=== PATIENT | female | born 1995 | race Caucasian/White ===

== ENCOUNTER 2016-12-23 10:00 | Emergency (ER) | payer MEDICAID ==
[~2016-12-23] VITALS: Ht 165.1 cm; Wt 66.3 kg
[2016-12-23 10:16] VITALS: TEMP 98.3
[2016-12-23] MEDS ORDERED: PRENATAL (12:27)
[2016-12-23 13:14] VITALS: BP 119/66; PULSE 85
== END 2016-12-23 13:15 | disposition home or self-care (01) ==
LOC: COL.ER 10:00
DX: O9A.212 Injury, poisoning and certain other consequences of external causes complicating pregnancy, second trimester (principal); S06.0X0A Concussion without loss of consciousness, initial encounter; Z3A.27 27 weeks gestation of pregnancy; W10.8XXA Fall (on) (from) other stairs and steps, initial encounter; Y92.008 Other place in unspecified non-institutional (private) residence as the place of occurrence of the external cause

== ENCOUNTER 2017-03-01 13:09 | Emergency (ER) | payer MEDICAID ==
[~2017-03-01] VITALS: Ht 165.1 cm; Wt 72.7 kg
[~2017-03-01 13:09] MED LIST: PRENATAL
[2017-03-01 13:11] VITALS: TEMP 98.3
[2017-03-01 14:55] LABS: PH 7 (5-8); SQUAMOUS EPITHELIAL 0-2 /hpf; URINE APPEARANCE Cloudy; URINE BACTERIA Rare /hpf; URINE BILIRUBIN Negative (NEGATIVE); URINE BLOOD Negative (NEGATIVE); URINE COLOR Yellow; URINE GLUCOSE 1+ (NEGATIVE); URINE KETONE Negative (NEGATIVE); URINE RBC 0-2 /hpf; URINE UROBILINOGEN Negative (NEGATIVE)
[2017-03-01 15:29] LABS: ADJUSTED CALCIUM 9.5 mg/dL (8.4-10.2); ALBUMIN 3.2 gm/dL (3.5-5.0); BILIRUBIN,TOTAL 0.5 mg/dL (0.0-1.0); CALCIUM 8.9 mg/dL (8.4-10.2); CREATININE, serum 0.63 mg/dL (0.52-1.25); POTASSIUM 3.5 mmol/L (3.4-5.0); TOTAL PROTEIN 6.4 gm/dL (6.4-8.2)
[2017-03-01 15:44] LABS: BASO % 0.3 % (0.0-2.0); EOS % 0.4 % (0-4.0); GRAN # 6.7 (1.4-6.5); GRAN % 73.3 % (42.2-75.2); LYMPH # 1.4 (1.2-3.4); LYMPH % 15.7 % (20.0-51.0); MEAN CELL VOLUME 80 fl (80.0-100.0); MEAN CORPUSCULAR HGB CONC 32 g/dl (33.0-37.0); MEAN PLATELET VOLUME 10.2 fl (7.4-10.4); MONO # 0.8 (0.1-0.6); MONO % 9.1 % (1.7-9.3); PLATELET COUNT 240 K/mm3 (130-400); RED BLOOD COUNT 4.38 M/mm3 (4.10-5.30); REDCELL DISTRIBUTION WIDTH-CV 14.3 % (11.5-14.5); WHITE BLOOD COUNT 9.2 K/mm3 (4.8-10.8)
[2017-03-01 15:45] LABS: HEMATOCRIT 35.2 % (37.0-47.0); HEMOGLOBIN 11.4 g/dl (12.5-16.0); MEAN CORPUSCULAR HEMOGLOBIN 26 pg (27.0-31.0)
[2017-03-01 17:36] VITALS: BP 120/72; PULSE 80
== END 2017-03-01 17:38 | disposition home or self-care (01) ==
LOC: COL.ER 13:09
PROVIDERS: Emergency Medicine
DX: O99.89 Other specified diseases and conditions complicating pregnancy, childbirth and the puerperium (principal); R06.02 Shortness of breath; Z3A.38 38 weeks gestation of pregnancy

== ENCOUNTER 2017-03-16 07:43 | Inpatient (IN) | payer MEDICAID ==
[~2017-03-16] VITALS: Ht 167.6 cm; Wt 74.1 kg
[2017-03-20] VITALS (33 sets, daily range): BP systolic 103–1210; BP diastolic 55–94; PULSE 74–123; TEMP 98–99.3
[2017-03-20 08:17] LABS: MEAN CELL VOLUME 79 fl (80.0-100.0); MEAN CORPUSCULAR HGB CONC 32 g/dl (33.0-37.0); MEAN PLATELET VOLUME 10.4 fl (7.4-10.4); PLATELET COUNT 249 K/mm3 (130-400); RED BLOOD COUNT 4.54 M/mm3 (4.10-5.30); REDCELL DISTRIBUTION WIDTH-CV 15.8 % (11.5-14.5); WHITE BLOOD COUNT 9.5 K/mm3 (4.8-10.8)
[2017-03-20 08:18] LABS: HEMATOCRIT 35.9 % (37.0-47.0); HEMOGLOBIN 11.6 g/dl (12.5-16.0); MEAN CORPUSCULAR HEMOGLOBIN 26 pg (27.0-31.0)
[2017-03-20 08:19] LABS: ADD PATHOLOGY DIFF REVIEW NO
[2017-03-20 09:16] LABS: ANISOCYTOSIS 1+; BAND 3 % (0-10); MICROCYTOSIS 1+; NEUTROPHILS 75 % (42.0-75.2); PLATELET ESTIMATE NORMAL (NORMAL); TOTAL CELLS COUNTED 100
[2017-03-21 00:30] VITALS: BP 121/53; PULSE 92; TEMP 97.8
[2017-03-21 03:30] VITALS: BP 104/60; PULSE 94; TEMP 98
[2017-03-21 07:09] LABS: BASO % 0.3 % (0.0-2.0); EOS % 0.2 % (0-4.0); LYMPH # 1.3 (1.2-3.4); MEAN CELL VOLUME 81 fl (80.0-100.0); MEAN CORPUSCULAR HGB CONC 31 g/dl (33.0-37.0); MEAN PLATELET VOLUME 10.3 fl (7.4-10.4); MONO # 0.9 (0.1-0.6); MONO % 6.5 % (1.7-9.3); PLATELET COUNT 202 K/mm3 (130-400); RED BLOOD COUNT 4.32 M/mm3 (4.10-5.30); WHITE BLOOD COUNT 13.4 K/mm3 (4.8-10.8)
[2017-03-21 07:18] LABS: HEMATOCRIT 35.1 % (37.0-47.0); HEMOGLOBIN 10.9 g/dl (12.5-16.0); MEAN CORPUSCULAR HEMOGLOBIN 25 pg (27.0-31.0)
[2017-03-21] MEDS ORDERED: IBU600 MG PO (08:44)
[2017-03-21 10:13] VITALS: BP 112/59; PULSE 114; TEMP 97.8
== END 2017-03-21 15:30 | disposition home or self-care (01) | DRG 775 ==
LOC: LDRO → EDSTATUS 07:43 → LDRO 14:27 → LDR 03-20 07:06 → OB 03-20 07:06 → LDR 03-20 07:45 → OB 03-20 15:10
PROVIDERS: Obstetrics & Gynecology
PROC: 10E0XZZ Delivery of Products of Conception, External Approach (ICD-10-PCS; principal; 2017-03-20)
PROC: 3E033VJ Introduction of Other Hormone into Peripheral Vein, Percutaneous Approach (ICD-10-PCS; 2017-03-20)
PROC: 0HQ9XZZ Repair Perineum Skin, External Approach (ICD-10-PCS; 2017-03-20)
DX: O48.0 Post-term pregnancy (principal); O70.0 First degree perineal laceration during delivery; Z3A.40 40 weeks gestation of pregnancy; Z37.0 Single live birth
CPT/HCPCS: J2590; J7120

== ENCOUNTER 2020-04-20 19:41 | Emergency (ER) | payer SELFPAY ==
[~2020-04-20] VITALS: Ht 165.1 cm; Wt 59.1 kg
[~2020-04-20 19:41] MED LIST changes: +IBU600 MG PO
[2020-04-20] MEDS ORDERED: AMOXICILLIN 8751 TAB PO (20:16)
[2020-04-20 21:20] VITALS: BP 114/70; PULSE 62; TEMP 97
== END 2020-04-20 21:26 | disposition home or self-care (01) ==
LOC: COL.ER 19:41
DX: S61.257A Open bite of left little finger without damage to nail, initial encounter (principal); Z23 Encounter for immunization; W54.0XXA Bitten by dog, initial encounter; Y92.009 Unspecified place in unspecified non-institutional (private) residence as the place of occurrence of the external cause